=== PATIENT | male | born 1985 | race Caucasian/White ===

== ENCOUNTER 2016-12-09 18:35 | Emergency (ER) | payer OTHER ==
[~2016-12-09] VITALS: Ht 182.9 cm; Wt 94.1 kg
[~2016-12-09 18:35] MED LIST: BACTRIM,SEPT1 TABLET PO; KEFLEX500 MG PO; METHADOSE10 MG/1 ML PO; NAPROXEN500 MG PO; ULTRAM50 MG PO
[2016-12-09] MEDS ORDERED: PEN-VEE K,VEET500 MG PO (20:49)
[2016-12-09] MEDS ORDERED: MOTRIN600 MG PO (20:50)
[2016-12-09] MEDS ORDERED: NORCO 5/3251 TABLET PO (20:50)
[2016-12-09 21:48] VITALS: BP 144/87
== END 2016-12-09 22:08 | disposition home or self-care (01) ==
LOC: EME 18:35
DX: K01.1 Impacted teeth (principal); K05.10 Chronic gingivitis, plaque induced
CPT/HCPCS: 99281; 99284

== ENCOUNTER 2017-06-23 10:39 | Emergency (ER) | payer OTHER ==
[~2017-06-23] VITALS: Ht 182.9 cm; Wt 92.6 kg
[~2017-06-23 10:39] MED LIST changes: +MOTRIN600 MG PO; +NORCO 5/3251 TABLET PO; +PEN-VEE K,VEET500 MG PO
[2017-06-23 10:45] VITALS: BP 100/83
== END 2017-06-23 12:30 | disposition left against medical advice (07) ==
LOC: EME 10:39
DX: S61.412A Laceration without foreign body of left hand, initial encounter (principal); W26.9XXA Contact with unspecified sharp object(s), initial encounter; Z53.21 Procedure and treatment not carried out due to patient leaving prior to being seen by health care provider
CPT/HCPCS: 99281